=== PATIENT | female | born 1980 | race African-American/Black ===

== ENCOUNTER 2017-12-31 09:59 | Emergency (ER) | payer SELFPAY ==
--- NOTE | 2017-12-31 11:44 | Emergency Department Report ---
Chief Complaint: Fever Stated Complaint: FEVER/CHILLS/COUGH Time Seen by Provider: 12/31/17 11:40 - HPI History of Present Illness: Pt is a 37 yo female for bodyaches, headaches, fever up to 103 x 1 day. pt denied sob, n/v/d , or abdominal pain. - ROS Review of Systems: ros: reviewed and neg except as per HPI - Exam Vital Signs: Vital Signs 12/31/17 10:04 Temperature 99.8 F H Pulse Rate 118 H Respiratory 22 Rate Blood Pressure 145/93 O2 Sat by Pulse 95 Oximetry Physical Exam: PE: general: awake , alert non-toxic appearing in no acute distress Heent: eomi, perrla; mmm: moist;pharyn clear Lungs:clear Heart: RRR; no g/m/r Abd: soft ND. +Bs; nt; no peritoneal signs MSE screening note: Focused history and physical exam performed. Due to findings the following was ordered: ED Disposition for MSE Condition: Stable Referrals: PRIMARY CARE [Primary Care Provider] - 3-5 Days
--- NOTE | 2017-12-31 13:07 | Emergency Department Report ---
HPI - General Chief Complaint: Fever Time Seen by Provider: 12/31/17 11:40 - HPI HPI: Pt is a 37 yo female for bodyaches, headaches, fever up to 103 x 1 day. pt denied sob, n/v/d , or abdominal pain. Patient denies any urinary burning frequency or urgency. She says she took [id number] medication for pain. Denies any difficulty breathing or chest pain or shortness of breath. Bodyaches gasateria attendant comes and goes. Denies any medical problem. She says she was exposed to someone that was sick but doesn't know she was exposed to the flu. ED Past Medical Hx - Past Medical History Previous Medical History?: No - Surgical History Past Surgical History?: No - Family History Family history: no significant - Social History Smoking Status: Current Every Day Smoker Substance Use Type: None - Medications Home Medications: Home Medications Medication Instructions Recorded Confirmed Last Taken Type Nitrofurantoin Rusk/M-Cryst 100 mg PO Q12HR #14 capsule 04/01/14 Unknown Rx [Macrobid] Phenazopyridine [Pyridium] 200 mg PO TID #6 tablet 04/01/14 Unknown Rx Cetirizine HCl [ZyrTEC] 10 mg PO QAM #10 capsule 12/31/17 Unknown Rx Ibuprofen [Motrin] 600 mg PO Q6H PRN #20 tablet 12/31/17 Unknown Rx Oseltamivir [Tamiflu] 75 mg PO BID 5 Days #10 cap 12/31/17 Unknown Rx ED Review of Systems ROS: Stated complaint: FEVER/CHILLS/COUGH Other details as noted in HPI Comment: All other systems reviewed and negative Constitutional: chills, fever, weakness Eyes: denies: eye pain, eye discharge ENT: congestion. denies: ear pain, throat pain, dental pain, hearing loss Respiratory: cough. denies: orthopnea, shortness of breath, SOB with exertion, SOB at rest, stridor, wheezing Cardiovascular: denies: chest pain, palpitations, dyspnea on exertion, edema, syncope, paroxysmal nocturnal dyspnea Gastrointestinal: denies: abdominal pain, nausea, vomiting, diarrhea, constipation Genitourinary: denies: dysuria, hematuria Musculoskeletal: myalgia. denies: back pain, joint swelling, arthralgia Skin: denies: rash Neurological: headache. denies: weakness, numbness, paresthesias, confusion, abnormal gait, vertigo Physical Exam - Physical Exam Vital Signs: Vital Signs 12/31/17 12/31/17 10:04 12:58 Temperature 99.8 F H 98.8 F Pulse Rate 118 H 105 H Respiratory 22 16 Rate Blood Pressure 145/93 Blood Pressure 150/93 [Left] O2 Sat by Pulse 95 96 Oximetry Vital Signs 12/31/17 12/31/17 12/31/17 10:04 12:58 14:00 Temperature 99.8 F H 98.8 F 99.1 F Pulse Rate 118 H 105 H 91 H Respiratory 22 16 20 Rate Blood Pressure 145/93 Blood Pressure 150/93 150/90 [Left] O2 Sat by Pulse 95 96 99 Oximetry General: This is a 37-year-old female well-nourished well-developed in no acute distress. Physical Exam: Head: Normocephalic, atraumatic, no abrasion, no bruising and no contusion. Eyes: Biateral pupils equal and reactive to light, bilateral EOM intact.. Bilateral conjunctival and sclera without injection, normal accommodation. No nystagmus Mouth: Moist, no pharyngeal exudate or erythema. No peritonsillar abscesses. Uvula is midline and oral airways patent. Ears: Bilateral TM congested without erythema. Bilateral EAC without any redness swelling or drainage. No mastoid bone tenderness Nose: Bilateral nasal turbinates congested with erythema and clear drainage. Maxillary and frontal sinuses tender to palpate. Neck: Supple, No Cervical adenopathy, full range of motion and no C-spine tenderness. No swelling or tracheal deviation normal reflexes Cardiovascular: S1, S2. Regular rate and rhythm. No murmur. Capillary refill is less then 3 seconds. Lungs: Clear to auscultate bilaterally. No rhonchi, wheezes or rales. No chest wall tenderness. No chest contusion. No bruising to chest. Dry cough MSK: Strength 5/5 in all extremities. No joint deformity or crepitus. Normal inspection. Full range of motion to all extremities. No laceration, abrasion or ecchymotic area noted. Abdomen: Non-tender to palpate in all quadrants, no guarding or rebound tenderness, positive bowel sounds in all quadrants. No CVA tenderness. No hernia, bruit or mass. No rigidity or distention. Extremities: No clubbing, cyanosis or edema. +2 pulses. No neurovascular compromise Skin: Clean, dry and intact. No rash or lesions. Neurological: GCS at 15, Pt is alert and oriented 3 speech is clear . Bilateral hand maternal fetal physician strong and equal. Normal gait. Negative Romberg and no pronator drift. Normal Reflexes. No motor or sensory deficit Psych: Normal mood and behavior ED Course Vital Signs 12/31/17 12/31/17 10:04 12:58 Temperature 99.8 F H 98.8 F Pulse Rate 118 H 105 H Respiratory 22 16 Rate Blood Pressure 145/93 Blood Pressure 150/93 [Left] O2 Sat by Pulse 95 96 Oximetry Vital Signs 12/31/17 12/31/17 12/31/17 10:04 12:58 14:00 Temperature 99.8 F H 98.8 F 99.1 F Pulse Rate 118 H 105 H 91 H Respiratory 22 16 20 Rate Blood Pressure 145/93 Blood Pressure 150/93 150/90 [Left] O2 Sat by Pulse 95 96 99 Oximetry - Reevaluation(s) Reevaluation #1: 12/31/17 14:48 Patient was able to tolerate oral Juice and water in emergency room. She was given Motrin 800 mg this relieved her headache and body ache ED Medical Decision Making - Lab Data Positive influenza A and not negative influenza B - Medical Decision Making ED course: This is a 37-year-old female well-nourished well-developed came in with flulike symptoms to include fever cough congestion runny nose and was found to have influenza A. Her influenza B test was negative. I discussed patient test results that she voiced understanding. Patient was orally hydrated in emergency room the water and apple juice which she tolerated well and given Motrin 800 mg by mouth for headache and body aches. I discussed patient diagnoses, treatment plan and follow-up and she voiced understanding. Patient says she does not have a primary care physician so I discussed with her she needs to follow-up with outside [facility] and also if she feels worse she can come back to the emergency room Critical care attestation.: If time is entered above; I have spent that time in minutes in the direct care of this critically ill patient, excluding procedure time. ED Disposition Clinical Impression: URI with cough and congestion, Fever chills, Fever in adult Disposition: DC-01 TO HOME OR SELFCARE Is pt being admited?: No Does the pt Need Aspirin: No Condition: Stable Instructions: Fever in Adults (ED), Influenza (ED), Acute Cough (ED) Additional Instructions: Please increase the fluid intake to 2-3 L of water, cranberry juice and/or orange juice daily Take Tamiflu for influenza a Rest for 72 hours Take Motrin as prescribed for fever and/or pain Return to the emergency room, a few symptoms worsen Prescriptions: Cetirizine HCl [ZyrTEC] 10 mg PO QAM #10 capsule Ibuprofen [Motrin] 600 mg PO Q6H PRN #20 tablet PRN Reason: Pain/FEVER Oseltamivir [Tamiflu] 75 mg PO BID 5 Days #10 cap [facility] - [facility]-3 Days Forms: Work/School Release Form(ED)
[2017-12-31] MEDS ORDERED: MOTRIN PO ONE (13:10)
[2017-12-31 14:47] VITALS: BP 150/90
== END 2017-12-31 15:27 | disposition home or self-care (01) ==
LOC: ED 09:59
DX: J06.9 Acute upper respiratory infection, unspecified (principal); F17.200 Nicotine dependence, unspecified, uncomplicated
CPT/HCPCS: 87400; 99282